=== PATIENT | female | born 1985 | race Two or more races ===

== ENCOUNTER 2021-10-25 09:04 | Outpatient (REF) | payer SELFPAY ==
[2021-10-26 02:31] LABS: CT PCR NOT DETECTED (Not Detect.); NG PCR NOT DETECTED (Not Detect.)
[2021-10-26 08:46] LABS: BV Int Neg Control Negative (Negative); BV Int Pos Control Positive (Positive)
[2021-10-30 09:47] LABS: HPV mRNA E6/E7 rflx Not Detected (Not Detected)
== END 2021-10-25 09:05 | disposition home or self-care (01) ==
LOC: HO.LAB 09:04
PROVIDERS: Visit Provider Advanced Practice Midwife
DX: Z01.419 Encounter for gynecological examination (general) (routine) without abnormal findings (principal); Z11.51 Encounter for screening for human papillomavirus (HPV); Z97.5 Presence of (intrauterine) contraceptive device; Z20.2 Contact with and (suspected) exposure to infections with a predominantly sexual mode of transmission
CPT/HCPCS: 87480; 87491; 87510; 87591; 87624; 87660; 88142

== ENCOUNTER → 2021-12-27 11:12 | Outpatient (BNVA) | payer MEDICAID, OTHER, SELFPAY | PROVIDERS: Visit Provider Advanced Practice Midwife | DX: N63.10 Unspecified lump in the right breast, unspecified quadrant (principal) | CPT/HCPCS: 99212 ==

== ENCOUNTER 2021-12-28 09:19 | Outpatient (REF) | payer MEDICAID, OTHER, SELFPAY ==
--- NOTE | ~2021-12-28 | MM_ITS ---
EXAMINATION: MM DIAGNOSTIC DIGITAL BREAST TOMOSYNTHESIS, BILATERAL US BREAST LIMITED, RIGHT US BREAST LIMITED, LEFT CLINICAL INFORMATION: Bilateral breast palpable abnormalities, upper outer right breast and central left breast. The lifetime risk of breast cancer based on the Tyrer-Cuzick Model is 7.4%. COMPARISON: Mammography: None TECHNIQUE: Digital breast tomosynthesis was performed in both the craniocaudal and mediolateral oblique views along with computer-aided detection (CAD). Synthesized 2D images were generated from the tomosynthesis. Bilateral targeted breast ultrasound. FINDINGS: The breasts are heterogeneously dense, which may obscure small masses (ACR BI-RADS breast composition Category c). There are bilateral scattered calcifications with no suspicious grouping being identified. No abnormal dominant mass or region of architectural distortion is identified. Within the right breast, no suspicious cystic or solid mass is identified. There are noted to be prominent ducts in the region of palpable abnormality. No abnormal filling defects or vascularity within the ducts is identified. The left breast demonstrates a dermal lesion which is hypoechoic measuring approximately 9 x 2 mm in size. No definite edematous change in the surrounding tissue is seen; however, there is some vascularity present and this may represent a ruptured sebaceous or epidermoid cyst since these are usually avascular. No definite duct to skin is identified. Clinical follow up is recommended. Results were provided to the patient at time of visit by the technologist. MM/MM tomosynthesis diagnostic BI IMPRESSION: Right breast palpable abnormality appears to correspond to some prominent ducts without suspicious findings. Left breast lesion corresponds to a dermal lesion which may represent a ruptured sebaceous or epidermoid cyst since there does appear to be some vascularity present. Clinical follow up is recommended. ASSESSMENT: BI-RADS 2: Benign RECOMMENDATION: Clinical follow up. If there remains clinical concern, then 6-month follow up left breast ultrasound could be performed.
== END 2021-12-28 09:20 | disposition home or self-care (01) ==
LOC: HO.MAMMO 09:19
PROVIDERS: Visit Provider Advanced Practice Midwife
DX: N63.14 Unspecified lump in the right breast, lower inner quadrant (principal); N63.23 Unspecified lump in the left breast, lower outer quadrant
CPT/HCPCS: 76642; 77062; 77066

== ENCOUNTER → 2022-03-01 10:38 | Outpatient (BNVA) | payer MEDICAID, OTHER, SELFPAY | PROVIDERS: Visit Provider Surgery | DX: N63.25 Unspecified lump in the left breast, overlapping quadrants (principal) | CPT/HCPCS: 99202 ==